=== PATIENT | female | born 1930 | race Caucasian/White ===

== ENCOUNTER 2017-07-20 10:16 | Observation (INO) | payer OTHER ==
[~2017-07-20] VITALS: Ht 152.4 cm; Wt 54.4 kg
--- NOTE | 2017-07-20 11:06 | Diagnostic Imaging Report ---
EXAMINATION: Chest, CHEST SINGLE (PORTABLE) INDICATION: Chest pain COMPARISON: None FINDINGS: LINES: Left chest cardiac device with leads projecting over the expected regions of the right atrium and ventricle. Heart: Normal cardiac silhouette. Vascular: The pulmonary vasculature is within normal limits. Atherosclerotic calcifications of the aortic arch. Mediastinum: No mediastinal, hilar, or axillary mass or lymphadenopathy. Lungs: No parenchymal mass. Airspace opacity in the left lung base. Pleura: No pleural effusion. No pneumothorax. Bones: No acute osseous abnormality. Degenerative changes of the thoracic spine. Soft tissues: Normal. Impression: Airspace opacity in the left lung base may represent atelectasis. Signed by: Dr. Fabian Trevizo M.D. on 07/20/2017 11:02 AM
--- NOTE | 2017-07-20 11:29 | Diagnostic Imaging Report ---
Exam: Head CT without contrast History: Multiple fall, abrasions on forehead. Comparison studies: Brain MRI 12/28/2008 Technique: Axial images were obtained from the skull base to the vertex. Coronal and sagittal images reconstructed from the axial data. Intravenous contrast: None Findings: Scalp: No abnormalities. Bones: No fractures, blastic or lytic lesions. Brain sulci: Moderately prominent. Ventricles: Moderate compensatory dilatation. No hydrocephalus. Extra-axial spaces: No masses, no fluid collection. Parenchyma: Severe confluent hypodensity in the periventricular and deep white matter are severe chronic small vessel ischemic changes. No parenchymal hemorrhage, mass or acute large territorial infarct. Multiple chronic bilateral striatocapsular lacunar infarcts, right thalamocapsular lacunar infarct and left thalamic lacunar infarct . Sellar/suprasellar region: Partially empty sella which is not unexpected for a patient of this age. Craniocervical junction: Patent foramen magnum. No Chiari one malformation. IMPRESSION: 1. No acute intracranial abnormality, particularly no hemorrhagic. 2. No change when compared to 12/28/2008 MRI. Chronic findings: 1. Moderate generalized intracranial volume loss. 2. Severe chronic small vessel ischemic changes. 3. 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 Preliminary report was provided by neuroradiology fellow, Dr.Thach Anuradha MD on 07/20/2017 11:28 AM. The preliminary report was reviewed and a final report issued by Dr. Box neuroradiologist on 07/20/2017 at 3:21 PM Signed by: Dr. Joanne Box M.D. on 07/20/2017 3:21 PM
--- NOTE | 2017-07-20 11:36 | Diagnostic Imaging Report ---
History: Fall. Comparison studies: None Technique: Axial images were obtained through the cervical region.. Coronal and sagittal images reconstructed from the axial data.. Findings: Fractures: None. Soft tissue injuries: None. Atlantoaxial articulation: Intact. Alignment: Normal lordosis. No scoliosis. Cervicomedullary junction: No abnormalities. The foramen magnum is patent. Soft tissues: No abnormalities. Vertebrae: No fractures, infection or neoplasm. Degenerative changes: Mild to moderate multilevel degenerative changes with disc degeneration and vacuum phenomenon at C5-C6 and multilevel facet arthrosis and uncovertebral arthrosis resulting in varying degrees of mild to moderate foraminal stenosis. Degenerative changes of the right TMJ with mild subluxation. IMPRESSION: 1. No acute cervical spine abnormalities. 2. Ligament, spinal cord and or vascular abnormalities cannot be excluded on the basis of this examination Preliminary report was provided by neuroradiology fellow, Dr.Thach Anuradha MD on 07/20/2017 11:35 AM. The preliminary report was reviewed and a final report issued by Dr. Box neuroradiologist on 07/20/2017 at 4:31 PM Signed by: Dr. Joanne Box M.D. on 07/20/2017 4:31 PM
[2017-07-20 12:01] LABS: BASOPHILS % 0.3 % (0.0-1.0); EOSINOPHILS # (AUTO) 0.1 (0.0-0.4); EOSINOPHILS % 0.6 % (0.0-6.0); HEMATOCRIT 36.6 % (34.2-44.1); HEMOGLOBIN 12.4 g/dL (12.0-16.0); LYMPHOCYTES # (AUTO) 0.8 (1.0-3.2); LYMPHOCYTES % 7.5 % (18.0-39.1); MEAN CORPUSCULAR HEMOGLOBIN 31.5 pg (28-32); MEAN CORPUSCULAR HGB CONC 33.9 g/dL (31-35); MEAN CORPUSCULAR VOLUME 92.9 fL (81-99); MONOCYTES # (AUTO) 0.7 (0.2-0.8); MONOCYTES % 6.4 % (4.4-11.3); NEUTROPHILS # (AUTO) 9.3 (2.1-6.9); NEUTROPHILS % 84.7 % (38.7-80.0); PLATELET COUNT 151 x10e3/uL (140-360); RED BLOOD COUNT 3.94 x10e6/uL (3.6-5.1); RED CELL DISTRIBUTION WIDTH 14.7 % (11.7-14.4)
[2017-07-20 12:20] LABS: INR 1.16; PROTHROMBIN TIME 13.9 seconds (11.9-14.5)
[2017-07-20 12:25] LABS: CLARITY,URINE SL CLOUDY (CLEAR); COLOR,URINE YELLOW (YELLOW); LEUKOCYTE ESTERASE ,URINE NEGATIVE (NEGATIVE)
[2017-07-20 12:26] LABS: BILIRUBIN,URINE 1+ (NEGATIVE); KETONES,URINE TRACE (NEGATIVE); NITRITE,URINE NEGATIVE (NEGATIVE); PROTEIN,URINE DIPSTICK 2+ (NEGATIVE); URINE UROBILINOGEN 1 mg/dL (0.2 - 1)
[2017-07-20 12:27] LABS: BACTERIA,URINE MODERATE /HPF; EPITHELIAL CELLS,URINE MODERATE /LPF; RBC,URINE 0-5 /HPF (0-5)
[2017-07-20 12:31] LABS: ALBUMIN 3.1 g/dL (3.5-5.0); ALBUMIN/GLOBULIN RATIO 0.9 (0.8-2.0); ANION GAP 12.3 mmol/L (8-16); CALCIUM 8.8 mg/dL (8.4-10.2); CREATININE, SERUM 0.89 mg/dL (0.57-1.11); MAGNESIUM 1.8 MG/DL (1.3-2.1); POTASSIUM 3.3 mmol/L (3.5-5.1)
[2017-07-20 12:51] LABS: B-TYPE NATRIURETIC PEPTIDE2 107.4 pg/mL (0-100); CREATINE KINASE MB 1.8 ng/mL (0-5.0); THYROID STIMULATING HORMONE 2.535 uIU/mL (0.350-4.940)
--- OUTSIDE RECORDS SUMMARY | 2017-07-20 13:34 | XMS REPORT ---
Author Author [facility] Address Unknown Phone Unavailable Care Team Providers Care Biomedical Field Service Engineer Name Role Phone JUSTYNA BURMFIELD Unavailable Unavailable Problems This patient has no known problems. Allergies, Adverse Reactions, Alerts This patient has no known allergies or adverse reactions. Medications This patient has no known medications. Results Test Description Test Time Test Comments Text Results Atomic Results Result Comments CHEST SINGLE (PORTABLE) [place] [address] Patient Name: SPENSER FERNANDEZ MR #: [id number] : 1930 Age/Sex: 87/F Req #: [id number] Adm Physician: Ordered by: WINNIE KNOX FLATWORK FINISHER Report #: [id number] Location: ER Room/Bed: Procedure: [id number] DX/CHEST SINGLE (PORTABLE) Exam Date: 07/20/17 Exam Time: 1030 REPORT STATUS: Signed EXAMINATION: Chest, CHEST SINGLE (PORTABLE) INDICATION: Chest pain COMPARISON : None FINDINGS: LINES: Left chest cardiac device with leads projecting over the expected regions of the right atrium and ventricle. Heart: Normal cardiac silhouette. Vascular: The pulmonary vasculature is within normal limits. Atherosclerotic calcifications of the aortic arch. Mediastinum: No mediastinal, hilar, or axillary mass or lymphadenopathy. Lungs: No parenchymal mass. Airspace opacity in the left lung base. Pleura: No pleural effusion. No pneumothorax. Bones: No acute osseous abnormality. Degenerative changes of the thoracic spine. Soft tissues: Normal. Impression: Airspace opacity in the left lung base may represent atelectasis. Signed by: Dr. Ethel Titus M.D. on 2017 11:02 AM Dictated By: ETHEL TITUS MD [id number] Transcribed By: ALEXANDRE on 07/20/17 110 COPY TO: WINNIE KNOX NP
[2017-07-20] MEDS: SODIUM CHLORIDE 0.9% 1000ML 1,000 ML IV SCH (14:20)
[2017-07-20] MEDS: CEFTRIAXONE SOD 1 GM VIAL IV SCH (14:20)
[2017-07-20 18:00] VITALS: BP 162/70
[2017-07-20] MEDS ORDERED: BUMETANIDE0.5 MG PO (18:22)
[2017-07-20] MEDS ORDERED: LOSARTAN POTASS25 MG (18:22)
[2017-07-20] MEDS ORDERED: LEVOTHYROXINE50 MCG PO (18:22)
[2017-07-20] MEDS ORDERED: CARVEDILOL3.125 MG PO (18:22)
[2017-07-20] MEDS ORDERED: ATORVASTATIN CA20 MG PO (18:22)
[2017-07-20] MEDS ORDERED: FUROSEMIDE40 MG PO (18:36)
[2017-07-20] MEDS ORDERED: ALENDRONATE SOD70 MG PO (18:36)
[2017-07-20 19:10] VITALS: BP 133/56
[2017-07-20 19:53] VITALS: BP 133/56
[2017-07-20 22:10] VITALS: BP 133/56
[2017-07-20 23:27] LABS: CREATINE KINASE MB 2.3 ng/mL (0-5.0)
[2017-07-21] VITALS: BP 137/66
[2017-07-21] MEDS: SODIUM CHLORIDE 0.9% 1000ML 1,000 ML IV SCH (01:33)
[2017-07-21] MEDS: CEFTRIAXONE SOD 1 GM VIAL IV SCH ×2 (01:33→13:39)
[2017-07-21 05:00] VITALS: BP 154/81
[2017-07-21 07:11] LABS: BASOPHILS % 0.2 % (0.0-1.0); EOSINOPHILS # (AUTO) 0.3 (0.0-0.4); EOSINOPHILS % 4.7 % (0.0-6.0); HEMATOCRIT 38.2 % (34.2-44.1); HEMOGLOBIN 12.6 g/dL (12.0-16.0); LYMPHOCYTES # (AUTO) 0.7 (1.0-3.2); LYMPHOCYTES % 11.1 % (18.0-39.1); MEAN CORPUSCULAR HEMOGLOBIN 31.3 pg (28-32); MEAN CORPUSCULAR VOLUME 94.8 fL (81-99); MONOCYTES # (AUTO) 0.3 (0.2-0.8); MONOCYTES % 5.5 % (4.4-11.3); NEUTROPHILS # (AUTO) 4.9 (2.1-6.9); NEUTROPHILS % 78.2 % (38.7-80.0); PLATELET COUNT 148 x10e3/uL (140-360); RED BLOOD COUNT 4.03 x10e6/uL (3.6-5.1); RED CELL DISTRIBUTION WIDTH 14.6 % (11.7-14.4)
[2017-07-21 07:25] VITALS: BP 152/72
[2017-07-21 07:48] LABS: ALANINE AMINOTRANSFERASE 14 IU/L (0-55); ALBUMIN 2.9 g/dL (3.5-5.0); ALBUMIN/GLOBULIN RATIO 0.8 (0.8-2.0); ALKALINE PHOSPHATASE 73 IU/L (40-150); ANION GAP 12.3 mmol/L (8-16); BLOOD UREA NITROGEN 15 mg/dL (7-26); BUN/CREATININE RATIO 20 (6-25); CALCIUM 8.2 mg/dL (8.4-10.2); CARBON DIOXIDE 27 mmol/L (22-29); CHLORIDE 105 mmol/L (98-107); CREATINE KINASE 236 IU/L (29-168); CREATININE, SERUM 0.74 mg/dL (0.57-1.11); EST GLOMERULAR FILTRATION RATE > 60 ML/MIN (60-); GLUCOSE 99 mg/dL (74-118); POTASSIUM 3.3 mmol/L (3.5-5.1); SODIUM 141 mmol/L (136-145)
[2017-07-21 08:12] VITALS: BP 152/72
[2017-07-21] MEDS ORDERED: ALENDRONATE SODIUM 70 MG TAB PO SCH (08:30)
[2017-07-21] MEDS ORDERED: BUMETANIDE 1 MG TAB PO SCH (09:00)
[2017-07-21] MEDS ORDERED: CARVEDILOL 3.125 MG TAB PO SCH (09:00)
[2017-07-21] MEDS: LOSARTAN POTASSIUM 25 MG TAB PO SCH (09:09)
[2017-07-21] MEDS: LEVOTHYROXINE SODIUM 25 MCG TABLET PO SCH (09:09)
[2017-07-21] MEDS ORDERED: BENZONATATE 100 MG CAP PO PRN (10:30)
[2017-07-21] MEDS ORDERED: POTASSIUM CHLORIDE 10 MEQ TABCR PO ONE (11:00)
--- NOTE | 2017-07-21 12:21 | History and Physical ---
PRIMARY CARE PHYSICIAN: Dr. Scottie Prieto. CHIEF COMPLAINT: Status post fall. Weakness. Dehydration. Urinary tract infection. HISTORY OF PRESENT ILLNESS: An 87-year-old female having increasing cough and dysuria. The patient felt weak. She lives at the senior assisted living [facility]. She fell and hit her head. She was brought into the hospital for observation. The patient is otherwise stable. CT scan of the brain was negative. Patient is comfortable at this time. She is awaiting to return back to the [facility] on Saturday. PAST MEDICAL HISTORY: Osteoporosis. Functional dementia. Hypothyroidism. Hyperlipidemia. Hypertension. HOME MEDICATIONS: List reviewed. ALLERGIES: TO CODEINE. PAST SURGICAL HISTORY: Noncontributory. SOCIAL HISTORY: Patient lives at [facility]. She does not smoke or use alcohol. No recreational drugs. REVIEW OF SYSTEMS: As mentioned. PHYSICAL EXAMINATION: GENERAL: The patient is in no acute distress. He is awake. VITAL SIGNS: Temperature is 98. Blood pressure 152/72. Pulse rate 77. Respiration 18. HEENT: Normocephalic, atraumatic and anicteric. NECK: Supple grossly. PULMONARY: Clear. CARDIOVASCULAR: Regular rate and rhythm. ABDOMEN: Soft and unremarkable. EXTREMITIES: No cyanosis or edema. NEUROLOGIC: No gross focal deficit. Moving all extremities. LABORATORY: Sodium 141, potassium 3.3, chloride 105, bicarb 27. BUN 15 creatinine 0.7. Glucose 99. WBC 6.2. Hemoglobin 12.6 and hematocrit 38. Platelets 148,000. Urinalysis is positive for urinary tract infection. IMPRESSION: 1. Urinary tract infection. 2. Upper respiratory symptom, most likely from possible allergies. 3. Status post fall. No obvious injury. PLAN: Observation. Replace electrolytes. Antibiotics. The patient will be able to go home within 1-2 days. Job#: [id number]
[2017-07-21 13:48] LABS: CREATINE KINASE MB 2.8 ng/mL (0-5.0)
[2017-07-21] MEDS: BENZONATATE 100 MG CAP PO SCH ×2 (15:00→21:23)
[2017-07-21 19:00] VITALS: BP 176/83
[2017-07-21] MEDS ORDERED: ATORVASTATIN 20 MG TAB PO SCH (21:00)
[2017-07-21 22:00] VITALS: BP 176/83
[2017-07-22 00:30] VITALS: BP 176/95
[2017-07-22] MEDS: CEFTRIAXONE SOD 1 GM VIAL IV SCH (02:09)
[2017-07-22] MEDS ORDERED: ALENDRONATE SODIUM 70 MG TAB PO SCH (06:30)
[2017-07-22 07:41] VITALS: BP 151/76
[2017-07-22 08:19] LABS: ANION GAP 12.5 mmol/L (8-16); BLOOD UREA NITROGEN 10 mg/dL (7-26); BUN/CREATININE RATIO 14 (6-25); CALCIUM 7.9 mg/dL (8.4-10.2); CARBON DIOXIDE 27 mmol/L (22-29); CHLORIDE 103 mmol/L (98-107); CREATININE, SERUM 0.69 mg/dL (0.57-1.11); EST GLOMERULAR FILTRATION RATE > 60 ML/MIN (60-); GLUCOSE 90 mg/dL (74-118); POTASSIUM 3.5 mmol/L (3.5-5.1); SODIUM 139 mmol/L (136-145)
[2017-07-22] MEDS: LEVOTHYROXINE SODIUM 25 MCG TABLET PO SCH (09:27)
[2017-07-22] MEDS: LOSARTAN POTASSIUM 25 MG TAB PO SCH (09:27)
[2017-07-22] MEDS: BENZONATATE 100 MG CAP PO SCH (09:27)
[2017-07-22 11:35] VITALS: BP 143/69
--- NOTE | 2017-07-22 12:37 | Discharge Summary ---
Patient on observation. PRIMARY CARE PHYSICIAN: Is Dr. Scottie Prieto. FINAL DIAGNOSES: 1. Urinary tract infection. 2. Status post fall with no obvious injury. SUMMARY: An 87-year-old female came in status post fall. She was slightly dehydrated due to taking multiple diuretics, Lasix and Bumex. Bumex has been discontinued. The patient is stable this time. She is comfortable. Blood pressure medication adjustment was done. The patient will resume her home medications except for the Bumex. She will take nifedipine XL 30 mg daily. The patient is stable, discharged home, will follow up with Dr. Scottie Prieto within a week. Patient stable, discharged home today. BUN and creatinine are 10 and 0.7 respectively. Sugar is at 90. Job#: [id number]
[2017-07-22] MEDS ORDERED: PROCARDIA XL30 MG (12:52)
[2017-07-22] MEDS ORDERED: KEFLEX500 MG (12:53)
[2017-07-22] MEDS ORDERED: TESSALON PERLE100 MG PO (12:54)
[2017-07-22] MEDS ORDERED: POTASSIUM CHLOR8 MEQ PO (13:02)
[2017-07-23] MEDS ORDERED: LEVOTHYROXINE SODIUM 25 MCG TABLET PO SCH (06:00)
== END 2017-07-22 13:39 | disposition home or self-care (01) ==
LOC: ER 10:16 → ERHOLD 13:31 → IMCU 17:28
PROVIDERS: ADMIT Internal Medicine; ATTEND Internal Medicine
DX: N39.0 Urinary tract infection, site not specified (principal); Z91.81 History of falling; E86.0 Dehydration; R53.1 Weakness; F03.90 Unspecified dementia, unspecified severity, without behavioral disturbance, psychotic disturbance, mood disturbance, and anxiety; E78.5 Hyperlipidemia, unspecified; I10 Essential (primary) hypertension; E03.9 Hypothyroidism, unspecified; T50.1X5A Adverse effect of loop [high-ceiling] diuretics, initial encounter
CPT/HCPCS: 36415 ×3; 70450; 71045; 72125; 80048; 80053 ×2; 81001; 82550 ×2; 82553 ×2; 82607; 82746; 83605; 83735; 83880; 84443 ×2; 84484 ×2; 85025 ×2; 85610; 85730; 87040; 87086; 87400; 93005; 96360; 99284; G0378 ×3; J0696 ×3; J7030 ×2